=== PATIENT | male | born 2000 ===

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

== ENCOUNTER 2023-01-05 01:17 | Emergency (ER) | payer BC ==
[2023-01-05] MEDS ORDERED: Lidocaine 1% 5 ML VIAL INJECT ONE (02:27)
== END 2023-01-05 03:35 | disposition home or self-care (01) ==
LOC: DL.ED 01:17
DX: S02.2XXA Fracture of nasal bones, initial encounter for closed fracture (principal); S01.81XA Laceration without foreign body of other part of head, initial encounter; Y04.2XXA Assault by strike against or bumped into by another person, initial encounter
CPT/HCPCS: 12013; 70450; 70486; 72125; 99282; 99284; J3490

== ENCOUNTER 2023-08-16 11:36 | Emergency (ER) | payer BC ==
[2023-08-16 12:10] LABS: APPEARANCE,URINE CLEAR (CLEAR); BILIRUBIN,URINE NEGATIVE (NEGATIVE); COLOR,URINE YELLOW (YELLOW); GLUCOSE,URINE NEGATIVE (NEGATIVE); KETONES,URINE NEGATIVE (NEGATIVE); LEUKOCYTE ESTERASE,URINE NEGATIVE (NEGATIVE); NITRITE,URINE NEGATIVE (NEGATIVE); OCCULT BLOOD,URINE NEGATIVE (NEGATIVE); PROTEIN,URINE NEGATIVE (NEGATIVE); UROBILINOGEN,URINE 0.2 mg/dL (0.2-1.0)
[2023-08-20 12:47] LABS: C.TRACHOMATIS BY TMA Negative (Negative); M GENITALIUM Negative (Negative); M GENITALIUM SOURCE Urine; N.GONORRHOEAE BY TMA Negative (Negative); SOURCE Urine
== END 2023-08-16 13:06 | disposition home or self-care (01) ==
LOC: DL.ED 11:36
DX: I86.1 Scrotal varices (principal)
CPT/HCPCS: 76870; 81003; 87491; 87563; 87591; 99284